=== PATIENT | male | born 1995 | race Caucasian/White ===

== ENCOUNTER 2016-09-06 19:04 | Emergency (ER) | payer OTHER ==
--- NOTE | 2016-09-06 20:04 | ED Physician Documentation ---
PD HPI HEENT - Stated complaint Stated Complaint: EAR PX - Chief complaint Chief Complaint: Heent - History obtained from History obtained from: Patient - History of Present Illness Timing - onset: Enter time (16:00) Timing - duration: Hours Timing - details: Abrupt onset Improves: Nothing Worsens: Other (no exacerbating factors) Similar symptoms before: Has not had sx before Recently seen: Not recently seen - Additional information Additional information: c/o L>R ear pain, sudden onset when he dove into water from a height. Pain has steadily gotten worse and there is associated mild hearing loss left ear Review of Systems Ears: reports: Loss of hearing (decreased hearing left ear), Ear pain. denies: Drainage/discharge, Tinnitus/ringing Nose: reports: Reviewed and negative Neurologic: denies: Headache PD PAST MEDICAL HISTORY - Past Medical History Past Medical History: No - Past Surgical History Past Surgical History: No - Present Medications Home Medications: Ambulatory Orders Medication Instructions Recorded Confirmed No Known Home Medications [No 09/06/16 09/06/16 Known Home Medications] - Allergies Allergies/Adverse Reactions: Allergies Allergy/AdvReac Type Severity Reaction Status Date / Time No Known Drug Allergies Allergy Verified 09/06/16 19:08 - Social History Does the pt smoke?: Yes Smoking Status: Current every day smoker Does the pt drink ETOH?: Yes Does the pt have substance abuse?: No - Immunizations Immunizations are current?: Yes PD ED PE NORMAL - Vitals Vital signs reviewed: Yes - General General: Alert and oriented X 3, No acute distress, Well developed/nourished - HEENT HEENT: Atraumatic, PERRL, EOMI, Moist mucous membranes PD ED PE EXPANDED - HEENT HEENT: R TM dull (no evidence of TM rupture or perforation), L TM red ( hemotympanum without loss of landmarks. not bulging. No evidence of perforation/ rupture) Results - Vitals Vitals: Vital Signs - 24 hr 09/06/16 09/06/16 19:06 21:03 Temperature 36.8 C 36.7 C Heart Rate 108 H 88 Respiratory 18 18 Rate Blood Pressure 119/83 H 106/71 O2 Saturation 97 96 Oxygen O2 Source Room air PD MEDICAL DECISION MAKING - ED course Complexity details: considered differential, d/w patient Departure - Departure Disposition: 01 Home, Self Care Clinical Impression: Hematotympanum of right ear Condition: Good Instructions: ED Barotrauma Ear Follow-Up: [facility] Will Goodrich [Provider Group] Comments: Follow up with your physician at [facility]. If your symptoms have not resolved by Thursday, they should reexamine your ears and possibly refer you to an ENT physician ([id number]) Discharge Date/Time: 09/06/16 21:03
[2016-09-06] MEDS ORDERED: HYDROcod/ACET 5/325 Prepack 6 PO STA (20:15)
[2016-09-06] MEDS ORDERED: HYDROcod/ACET 5/325 Prepack 6 PO ONE (20:30)
[2016-09-06 21:04] VITALS: BP 106/71
== END 2016-09-06 21:03 | disposition home or self-care (01) ==
LOC: ED 19:04
DX: H73.891 Other specified disorders of tympanic membrane, right ear (principal)
CPT/HCPCS: 99282; 99283